=== PATIENT | male | born 1955 | race Caucasian/White ===

== ENCOUNTER 2020-03-08 03:51 | Emergency (ER) | payer SELFPAY ==
[2020-03-08] MEDS ORDERED: ONDANSETRON 4 MG/2 ML VIAL ONE (04:30)
[2020-03-08] MEDS ORDERED: MORPHINE 4 MG/ML SYR ONE (04:30)
[2020-03-08 04:58] LABS: Absolute Lymphocytes (CBC) 1.6 K/uL (0.7-4.9); Basophils % 1.3 % (0-1.3); Hematocrit 33.8 % (39.6-49.0); Lymphocytes % 20.6 % (15.3-44.8); MPV 7.9 fL (7.6-11.3); RBC Red Blood Cell Count 3.74 M/uL (4.33-5.43)
[2020-03-08 05:01] LABS: Protime INR 1.17
[2020-03-08 05:10] LABS: Albumin 2.9 g/dL (3.4-5.0); Bilirubin Direct 0.3 mg/dL (0-0.2); Bilirubin Total 0.8 mg/dL (0.2-1.0); Protein, Total 7.1 g/dL (6.4-8.2)
[2020-03-08] MEDS ORDERED: HYDROCODONE/APAP 5/325 MG TAB ONE (06:13)
--- NOTE | 2020-03-08 09:54 | ER ---
Nurse's Notes [facility] Name: Moose Rosado Age: 64 yrs Sex: Male : 1955 Arrival Date: 03/08/2020 Time: 03:57 Bed 5 Private MD: Diagnosis: Pain in right knee;Effusion, right knee Presentation: 03/08 03:58 Chief complaint: EMS states: Reports he was awakened by pain to the right knee. Reports ea pain was initially 10/10. EMS stated pt had fracture to right femur and had surgery over a month ago. Coronavirus screen: At this time, the client does not indicate any symptoms associated with coronavirus-19. Ebola Screen: No symptoms or risks identified at this time. Initial Sepsis Screen: Does the patient meet any 2 criteria? No. Patient's initial sepsis screen is negative. Does the patient have a suspected source of infection? No. Patient's initial sepsis screen is negative. Risk Assessment: Do you want to hurt yourself or someone else? Patient reports no desire to harm self or others. Onset of symptoms was March 08, 2020. 03:58 Method Of Arrival: EMS: [facility] ea 03:58 Acuity: DELMI 3 ea Triage Assessment: 04:02 General: Appears uncomfortable, Behavior is cooperative, appropriate for age. Pain: ea Complains of pain in right knee. Historical: - Allergies: 04:06 No Known Allergies; ea - PMHx: 04:06 Anxiety; Hyperlipidemia; ventricular tachycardia; ea - Immunization history:: Adult Immunizations up to date. - Social history:: Smoking status: Patient denies any tobacco usage or history of. Screenin:01 Abuse screen: Denies threats or abuse. Nutritional screening: No deficits noted. ea Tuberculosis screening: No symptoms or risk factors identified. Fall Risk Gait- Impaired (20 pts.). Assessment: 04:02 General: Appears uncomfortable, Behavior is appropriate for age. Pain: Complains of ea pain in right knee. Neuro: Level of Consciousness is awake, alert, obeys commands, Oriented to person, place, time, situation. Cardiovascular: Patient's skin is warm and dry. Respiratory: Airway is patent Respiratory effort is even, unlabored, Respiratory pattern is regular, symmetrical. : No signs and/or symptoms were reported regarding the genitourinary system. Derm: Skin is dry, Skin is normal, Skin temperature is warm Bruising that is green, on lateral aspect of right thigh edema to right upper leg and knee. Musculoskeletal: Reports surgery was done more than a month to repair his femur. 04:04 Reassessment: pt states he is feeling a numbness and tingling all over now Dr Sarah davison notified. 05:50 Reassessment: Patient and/or family updated on plan of care and expected duration. Pain ea level reassessed. Patient is alert, oriented x 3, equal unlabored respirations, skin warm/dry/pink. Awaiting on ultrasound. 06:44 Reassessment: Patient and/or family updated on plan of care and expected duration. Pain ea level reassessed. Patient is alert, oriented x 3, equal unlabored respirations, skin warm/dry/pink. 07:00 Reassessment: RECD REPORT FROM ANAM PROCTOR. 64YO WM P/W R KNEE PAIN AND EDEMA. PT bp CURRENTLY IN REHAB FOR R FEMUR SURGERY. 07:04 General: Appears in no apparent distress. comfortable, Behavior is calm, cooperative. rb1 Pain: Complains of pain in right knee Pain currently is 2 out of 10 on a pain scale. Neuro: Level of Consciousness is awake, alert, obeys commands, Oriented to person, place, time, situation. Cardiovascular: Capillary refill < 3 seconds Patient's skin is warm and dry. 07:04 Respiratory: Airway is patent Respiratory effort is even, unlabored, Respiratory rb1 pattern is regular, symmetrical. 08:00 Reassessment: Patient appears in no apparent distress at this time. No changes from rb1 previously documented assessment. 09:00 Reassessment: Patient appears in no apparent distress at this time. Respiratory: Airway rb1 is patent Respiratory effort is even, unlabored, Respiratory pattern is regular, symmetrical. 10:10 Reassessment: Spoke to [facility] staff and they will arrange aa5 transportation back to facility, will call us back for an update on ETA. . 10:45 Reassessment: Patient appears in no apparent distress at this time. Patient and/or rb1 family updated on plan of care and expected duration. Pain level reassessed. Patient is alert, oriented x 3, equal unlabored respirations, skin warm/dry/pink. 11:22 Reassessment: Discharge pending due to transportation. rb1 11:45 Reassessment: Patient appears in no apparent distress at this time. No changes from rb1 previously documented assessment. Awaiting transportation for discharge. 12:55 Reassessment: PT D/C HOME VIA W/C WITH FAMILY, DX WITH JOINT EFFUSION. bp Vital Signs: 03:58 BP 152 / 114; Pulse 90; Resp 18; Temp 97.8; Pulse Ox 98% on R/A; Weight 83.91 kg; ea Height 5 ft. 8 in. (172.72 cm); Pain 7/10; 04:42 BP 134 / 96; Pulse 80; Resp 18; Pulse Ox 95% on R/A; ea 05:45 BP 134 / 94; Pulse 84; Resp 18; Pulse Ox 97% on R/A; ea 06:44 BP 110 / 85; Pulse 78; Resp 18; Pulse Ox 97% on R/A; ea 07:00 BP 118 / 75; Pulse 70; Resp 17; Pulse Ox 96% ; rb1 07:51 BP 114 / 88; Pulse 74; Resp 17; Pulse Ox 96% ; Pain 2/10; rb1 08:00 BP 126 / 80; Pulse 73; Resp 16; Pulse Ox 96% ; rb1 09:00 BP 114 / 84; Pulse 63; Resp 17; Pulse Ox 99% ; rb1 10:00 BP 145 / 99; Pulse 81; Resp 17; Pulse Ox 97% ; rb1 11:00 BP 137 / 85; Pulse 67; Resp 17; Pulse Ox 95% ; bp 12:00 BP 127 / 93; Pulse 79; Resp 17; Pulse Ox 96% ; rb1 12:55 BP 126 / 82; Pulse 79; Resp 16; Temp 97.8; Pulse Ox 95% ; bp 03:58 Body Mass Index 28.13 (83.91 kg, 172.72 cm) ea ED Course: 03:57 Patient arrived in ED. ea 03:57 Ten Smith MD is Attending Physician. 7 04:01 Triage completed. ea 04:02 Arm band placed on right wrist. Patient placed in an exam room, on a stretcher, on ea pulse oximetry. 04:02 Patient has correct armband on for positive identification. Bed in low position. Call ea light in reach. Side rails up X2. 04:11 Gita Arrieta RN is Primary Nurse. ea 04:25 Inserted saline lock: 22 gauge in right forearm, using aseptic technique. Blood ea collected. 05:01 Knee Right 3 View XRAY In Process Unspecified. EDMS 06:51 Antonio Stanford, CHAD is PHCP. pm1 07:44 Primary Nurse role handed off by Gita Arrieta, ESTHELA rb1 07:44 Starla Braden, ESTHELA is Primary Nurse. rb1 09:03 US Extremity Venous Unilateral Ltd In Process Unspecified. EDMS 10:51 spoke with Jeannie at [facility] regarding EMS ETA for pickup. She stated mt that she is in contact with her director, Jean-Pierre Nunez, trying to find a new ambulance service and waiting for our clinicals to be faxed over. 11:25 Spoke with director of placement at [place], jean-pierre nunez, and was told that EMS mt transportation needs to be accepted though their admin but admin is not answering the phone. Notified ER director and fuel house attendant. 11:38 circuit board drafter at [facility] notified us that the patients brother will be arriving mt within an hour to transfer patient back to [facility]. 12:56 No provider procedures requiring assistance completed. IV discontinued, intact, rb1 bleeding controlled, No redness/swelling at site. Pressure dressing applied. Administered Medications: 04:34 Drug: Zofran (Ondansetron) 4 mg Route: IVP; Site: right forearm; ea 06:07 Follow up: Response: No adverse reaction ea 04:35 Drug: morphine 4 mg {Note: rass 0.} Route: IVP; Site: right forearm; ea 06:00 Follow up: Response: No adverse reaction; Pain is unchanged, physician notified ea 06:06 Drug: [place] 5 mg-325 mg 1 tabs {Note: RASS 0.} Route: PO; ea 07:04 Follow up: Response: No adverse reaction; Pain is decreased rb1 10:51 Drug: Tylenol 650 mg Route: PO; rb1 12:58 Follow up: Response: Pain is decreased bp Outcome: 09:53 Discharge ordered by . pm1 12:56 Discharged to home via wheelchair, with family. rb1 12:56 Condition: stable 12:56 Discharge instructions given to patient, Instructed on discharge instructions, follow up and referral plans. medication usage, Demonstrated understanding of instructions, follow-up care, medications, Prescriptions given X 1. 12:57 Patient left the ED. rb1 Signatures: Dispatcher [employer] EDMS Almita Dickerson RN RN bb Maricel Kerr RN RN aa5 Starla Braden, RN RN rb1 Antonio Stanford, CHAD GELATIN DYNAMITE PACKING OPERATOR pm1 Virgie Savage hi Gita Arrieta RN RN ea Peltier, Brian RN Ten Pace MD MD mh7 Corrections: (The following items were deleted from the chart) 12:02 11:38 circuit board drafter at [facility] notified us that [facility] will mt be picking up patient in 1 hour. hi
--- NOTE | 2020-03-08 09:54 | EDPHYS ---
Physician Documentation [facility] Name: Moose Rosado Age: 64 yrs Sex: Male : 1955 Arrival Date: 03/08/2020 Time: 03:57 Bed 5 Private MD: ED Physician Ten Smith HPI: 03/08 04:53 This 64 yrs old Male presents to ER via EMS with complaints of Knee Pain. [facility] 04:53 The patient presents with pain, that is acute. The complaints affect the medial aspect mh7 of right knee and right knee. Context: The problem was sustained rehab center. Onset: The symptoms/episode began/occurred today. Modifying factors: The symptoms are alleviated by remaining still, the symptoms are aggravated by movement. Associated signs and symptoms: Pertinent negatives fever, nausea, numbness, rash, tingling, vomiting, warmth, weakness. Treatment prior to arrival includes: no previous treatment. 04:58 Severity of symptoms: At their worst the symptoms were moderate, earlier today, in the [facility] emergency department the symptoms have improved, moderately. Patient had surgery on right femur about one month ago after a fracture. He states that he started to have pain in right knee today. Denies any recent injury, weakness, fever, nausea, vomiting.. Historical: - Allergies: 04:06 No Known Allergies; ea - PMHx: 04:06 Anxiety; Hyperlipidemia; ventricular tachycardia; ea - Immunization history:: Adult Immunizations up to date. - Social history:: Smoking status: Patient denies any tobacco usage or history of. ROS: 04:58 Constitutional: Negative for fever, chills, and weight loss, Eyes: Negative for injury, mh7 pain, redness, and discharge, ENT: Negative for injury, pain, and discharge, Neck: Negative for injury, pain, and swelling, Cardiovascular: Negative for chest pain, palpitations, and edema, Respiratory: Negative for shortness of breath, cough, wheezing, and pleuritic chest pain. 05:14 Abdomen/GI: Negative for abdominal pain, nausea, vomiting, diarrhea, and constipation, mh7 Back: Negative for injury and pain, : Negative for injury, bleeding, discharge, and swelling, Skin: Negative for injury, rash, and discoloration, Neuro: Negative for headache, weakness, numbness, tingling, and seizure, Psych: Negative for depression, anxiety, suicide ideation, homicidal ideation, and hallucinations, Allergy/Immunology: Negative for hives, rash, and allergies, Endocrine: Negative for neck swelling, polydipsia, polyuria, polyphagia, and marked weight changes, Hematologic/Lymphatic: Negative for swollen nodes, abnormal bleeding, and unusual bruising. Exam: 05:14 Constitutional: This is a well developed, well nourished patient who is awake, alert, mh7 and in no acute distress. Head/Face: Normocephalic, atraumatic. Neck: Trachea midline, no thyromegaly or masses palpated, and no cervical lymphadenopathy. Supple, full range of motion without nuchal rigidity, or vertebral point tenderness. No Meningismus. Chest/axilla: Normal chest wall appearance and motion. Nontender with no deformity. No lesions are appreciated. Cardiovascular: Regular rate and rhythm with a normal S1 and S2. No gallops, murmurs, or rubs. Normal PMI, no JVD. No pulse deficits. Respiratory: Lungs have equal breath sounds bilaterally, clear to auscultation and percussion. No rales, rhonchi or wheezes noted. No increased work of breathing, no retractions or nasal flaring. Abdomen/GI: Soft, non-tender, with normal bowel sounds. No distension or tympany. No guarding or rebound. No evidence of tenderness throughout. Back: No spinal tenderness. No costovertebral tenderness. Full range of motion. Skin: Warm, dry with normal turgor. Normal color with no rashes, no lesions, and no evidence of cellulitis. Neuro: Awake and alert, GCS 15, oriented to person, place, time, and situation. Cranial nerves II-XII grossly intact. Motor strength 5/5 in all extremities. Sensory grossly intact. Cerebellar exam normal. Normal gait. Psych: Awake, alert, with orientation to person, place and time. Behavior, mood, and affect are within normal limits. 06:01 Musculoskeletal/extremity: Extremities: noted in the right anterior and posterior knee: mh7 pain, swelling, tenderness, ROM: intact in all extremities, Circulation is intact in all extremities. Pulses: are normal with no appreciated deficits, Perfusion: the patient is normally perfused throughout, Perfusion: the extremity is normally perfused throughout, Calf tenderness, that is mild, of the right lower extremity, Edema, is not appreciated, Sensation intact. Compartment Syndrome exam of affected extremity: is normal. no numbness, no tingling, no sensation deficit, no palor, no weak pulses, Joints: the right knee displays swelling, tenderness, Weight bearing: can bear weight with assistance only, uses crutches, Tendon exam: specific tendon testing normal through active and passive range of motion DVT Exam: negative Homans' sign noted on exam, no appreciated bluish discoloration, no erythema, no increased warmth, pain, swelling, tenderness, Calves: have equal circumference, are tender, on right. Vital Signs: 03:58 BP 152 / 114; Pulse 90; Resp 18; Temp 97.8; Pulse Ox 98% on R/A; Weight 83.91 kg; ea Height 5 ft. 8 in. (172.72 cm); Pain 7/10; 04:42 BP 134 / 96; Pulse 80; Resp 18; Pulse Ox 95% on R/A; ea 05:45 BP 134 / 94; Pulse 84; Resp 18; Pulse Ox 97% on R/A; ea 06:44 BP 110 / 85; Pulse 78; Resp 18; Pulse Ox 97% on R/A; ea 07:00 BP 118 / 75; Pulse 70; Resp 17; Pulse Ox 96% ; rb1 07:51 BP 114 / 88; Pulse 74; Resp 17; Pulse Ox 96% ; Pain 2/10; rb1 08:00 BP 126 / 80; Pulse 73; Resp 16; Pulse Ox 96% ; rb1 09:00 BP 114 / 84; Pulse 63; Resp 17; Pulse Ox 99% ; rb1 10:00 BP 145 / 99; Pulse 81; Resp 17; Pulse Ox 97% ; rb1 11:00 BP 137 / 85; Pulse 67; Resp 17; Pulse Ox 95% ; bp 12:00 BP 127 / 93; Pulse 79; Resp 17; Pulse Ox 96% ; rb1 12:55 BP 126 / 82; Pulse 79; Resp 16; Temp 97.8; Pulse Ox 95% ; bp 03:58 Body Mass Index 28.13 (83.91 kg, 172.72 cm) ea MDM: 03:57 Patient medically screened. [facility] 09:50 Data reviewed: vital signs. Data interpreted: Pulse oximetry: on room air is 96 %. pm1 Interpretation: normal. Counseling: I had a detailed discussion with the patient and/or guardian regarding: the historical points, exam findings, and any diagnostic results supporting the discharge/admit diagnosis, lab results, radiology results, the need for outpatient follow up, to return to the emergency department if symptoms worsen or persist or if there are any questions or concerns that arise at home. 09:51 Refusal of service: The patient/guardian displays adequate decision making capability pm1 and despite a detailed discussion of alternatives, benefits, risks, and consequences refuses: right knee joint aspiration. Discussed labs, x-ray, and u/s findings with patient and his brother, Viral on the phone. Patient and his brother decided not to get joint effusion aspiration since his pain had markedly improved with the medications given in the ER and they did not like the risks associated with the procedure. 03/08 04:04 Order name: CBC with Diff; Complete Time: 05:13 7 03/08 04:04 Order name: Basic Metabolic Panel; Complete Time: 05:13 7 03/08 04:04 Order name: LFT's; Complete Time: 05:13 7 03/08 04:04 Order name: Protime (+inr); Complete Time: 05:13 7 03/08 04:04 Order name: Ptt, Activated; Complete Time: 05:13 mh7 03/08 04:07 Order name: Knee Right 3 View XRAY; Complete Time: 01:24 mh7 03/08 06:01 Order name: US Extremity Venous Unilateral Ltd; Complete Time: 10:25 mh7 Administered Medications: 04:34 Drug: Zofran (Ondansetron) 4 mg Route: IVP; Site: right forearm; ea 06:07 Follow up: Response: No adverse reaction ea 04:35 Drug: morphine 4 mg {Note: rass 0.} Route: IVP; Site: right forearm; ea 06:00 Follow up: Response: No adverse reaction; Pain is unchanged, physician notified ea 06:06 Drug: [place] 5 mg-325 mg 1 tabs {Note: RASS 0.} Route: PO; ea 07:04 Follow up: Response: No adverse reaction; Pain is decreased rb1 10:51 Drug: Tylenol 650 mg Route: PO; rb1 12:58 Follow up: Response: Pain is decreased bp Disposition: 03/08/20 09:53 Discharged to Home. Impression: Pain in right knee, Effusion, right knee. - Condition is Stable. - Discharge Instructions: Knee Effusion, Knee Pain. - Prescriptions for Tylenol- Codeine #3 300-30 mg Oral Tablet - take 2 tablets by ORAL route every 6 hours As needed; 20 tablet. - Medication Reconciliation Form, Thank You Letter, Antibiotic Education, Prescription Opioid Use form. - Follow up: Emergency Department; When: As needed; Reason: Worsening of condition. Follow up: Private Physician; When: 2 - 3 days; Reason: Recheck today's complaints, Continuance of care, Re-evaluation by your physician. - Problem is new. - Symptoms have improved. Addendum: 03/12/2020 01:25 Co-signature as Attending Physician, Ten Smith MD. m Signatures: Dispatcher [employer] EDMS Starla Braden RN RN rb1 Antonio Stanford NP CAR WASH SUPERVISOR pm1 Gita Arrieta RN RN ea Holmes, Maurice, MD MD 7 Gage Aguero RN bp Corrections: (The following items were deleted from the chart) 03/08 09:56 09:53 03/08/2020 09:53 Discharged to Home. Impression: Pain in right knee. Condition is pm1 Stable. Forms are Medication Reconciliation Form, Thank You Letter, Antibiotic Education, Prescription Opioid Use. Follow up: Emergency Department; When: As needed; Reason: Worsening of condition. Follow up: Private Physician; When: 2 - 3 days; Reason: Recheck today's complaints, Continuance of care, Re-evaluation by your physician. Problem is new. Symptoms have improved. pm1 12:57 09:56 03/08/2020 09:53 Discharged to Home. Impression: Pain in right knee; Effusion, rb1 right knee. Condition is Stable. Discharge Instructions: Knee Pain, Knee Effusion. Forms are Medication Reconciliation Form, Thank You Letter, Antibiotic Education, Prescription Opioid Use. Follow up: Emergency Department; When: As needed; Reason: Worsening of condition. Follow up: Private Physician; When: 2 - 3 days; Reason: Recheck today's complaints, Continuance of care, Re-evaluation by your physician. Problem is new. Symptoms have improved. pm1
--- NOTE | 2020-03-08 10:19 | RAD REPORT ---
[facility] DESCRIPTION[facility]/2020 9:04 am CLINICAL HISTORY: Right leg pain COMPARISON: None. FINDINGS: Right common femoral, superficial femoral, popliteal and right posterior tibial veins are compressible and demonstrate augmentation. Doppler demonstrates good flow. 5 centimeter Bustillo's cyst IMPRESSION: No evidence of deep venous thrombosis involving the right lower extremity. 5 centimeter complex Bustillo's cyst
--- NOTE | 2020-03-08 10:44 | RAD REPORT ---
EXAM DESCRIPTION: RAD - Knee Right 3 View - 03/08/2020 5:00 am CLINICAL HISTORY: 64-year-old male with right knee pain, previous femur surgery one month ago with k nee swelling and pain TECHNIQUE: Three x-ray views of the right knee were performed on 03/08/2020 at 3:08 AM. COMPARISON: None FINDINGS: There are remote postsurgical changes of the right femur consistent with placement of an i ntramedullary alicja which is partially imaged on this study. There is no evidence of acute fracture or dislocation. There is mild hypertrophic spurring of the femoral condyles, tibial plateau and posterio r patella. There is a prominent enthesophyte along the anterior superior pole of the patella. A fract ure of this enthesophyte is not entirely excluded. Bone mineralization is normal. There is soft tissue swelling along the anterior superior right knee and posterior to the right knee likely due to a joint effusion and possible popliteal cyst. There are soft tissue calcifications willie g the lateral aspect of the knee joint. IMPRESSION: 1. Soft tissue swelling along the anterior and posterior right knee with associated supr apatellar joint effusion and possible popliteal cyst. 2. Prominent enthesophyte along the anterior superior pole of the patella. A fracture through this en thesophyte is not entirely excluded. 3. Degenerative changes of the right knee. Electronically signed by: Maribel Mendez DO 03/08/2020 5:33 AM CDT Due to temporary technical issues with the PACS/Fluency reporting system, reports are being signed by the in house radiologist without review as a courtesy prompt reporting. The interpreting radiologis t is fully responsible for the content of the report.
[2020-03-08] MEDS ORDERED: ACETAMINOPHEN 325 MG TABLET ONE (11:00)
== END 2020-03-08 12:57 | disposition home or self-care (01) ==
LOC: ER 03:51
DX: M25.561 Pain in right knee (principal); M25.461 Effusion, right knee
CPT/HCPCS: 36415; 80048; 80076; 85025; 85610; 85730; 93971; 96374; 96375; 99284; J2405